=== PATIENT | male | born 1995 | race Caucasian/White ===

== ENCOUNTER 2023-05-03 08:55 | Emergency (ER) | payer MEDICAID ==
[~2023-05-03] VITALS: Ht 172.7 cm; Wt 99.8 kg
--- NOTE | 2023-05-03 09:04 | ED Psychosocial ---
General Stated Complaint: SUICIDAL IDEATION History of Present Illness Date Seen by Provider: May 03, 2023 Time Seen by Provider: 09:10 Initial Comments 28-year-old male that was supposedly sent in by mental health. When I walked into asked patient what was going on he just said "I had a rough childhood nobody wants to bleed me and if you want to believe me then just the last time I am telling anybody" closely been kicked out of both [facility] and [facility] around 30 times. Patient did not voice suicidal homicidal ideations but really was and did not provide a lot of history Allergies and Home Medications Allergies Coded Allergies: No Known Allergies (Verified Allergy, Unknown, 05/03/23) Patient Home Medication List Home Medication List Reviewed: Yes Review of Systems Constitutional: see HPI EENTM: no symptoms reported Respiratory: no symptoms reported Cardiovascular: no symptoms reported Gastrointestinal: no symptoms reported Genitourinary: no symptoms reported Musculoskeletal: no symptoms reported Psychiatric/Neurological: See HPI Physical Exam Vital Signs - First Documented 05/03/23 09:18 Temp 36.6 Pulse 84 Resp 17 B/P (MAP) 143/84 (103) O2 Delivery Room Air Capillary Refill : Height, Weight, BMI Height: '" Weight: lbs. oz. kg; BMI Method: General Appearance: no apparent distress Respiratory: lungs clear, normal breath sounds Cardiovascular: normal peripheral pulses, regular rate, rhythm Neurologic/Psychiatric: alert, other (angry, aggressive ) Behavior/Eye Contact: uncooperative Progress/Results/Core Measures Results/Orders My Orders Orders - LOY TYLER DO Ekg Tracing (05/03/23 09:05) Monitor-Rhythm Ecg Trace Only (05/03/23 09:05) Bh Status Checks/Observation O Q15M (05/03/23 09:05) Vital Signs/I&O 05/03/23 09:18 Temp 36.6 Pulse 84 Resp 17 B/P (MAP) 143/84 (103) O2 Delivery Room Air Progress Progress Note : Progress Note Patient presented uncooperative and aggressive. Pt told nurse that he was just Wanted leave amd walked out without phone. . When we went to give him his phone he stated he did not want it and continue to walk out. Outside of pat ient stating he had a "rough childhood" he did not voice suicidal or homicidal ideations.When pt initially arrived, informed of care plan, that included screening with labs and then have behavioral health screen him to help establish a care plan that might include outpt followup vs inpatient treatmen. . He reports the nurses that he been kicked out of [facility] been seen 30 times for this so patient likely has some significant behavioral issues. PD and behavior health where both notified upon him leaving ER Initial ECG Impression Date: May 03, 2023 Initial ECG Impression Time: 09:12 Initial ECG Rate: 91 Initial ECG Rhythm: S.Tach Initial ECG Impression: Normal EKG : EKG Time: 09:12 Departure Impression Primary Impression: Behavior problem Disposition: 07 AGAINST MEDICAL ADVICE Condition: Stable Departure-Patient Inst. Referrals: NO,LOCAL PHYSICIAN (PCP/Family) Primary Care Physician LOY TYLER DO May 03, 2023 09:04
[2023-05-03 09:18] VITALS: BP 143/84
== END 2023-05-03 09:16 | disposition left against medical advice (07) ==
LOC: ER 08:58
DX: F69 Unspecified disorder of adult personality and behavior (principal); Z28.310 Unvaccinated for COVID-19
CPT/HCPCS: 93005